=== PATIENT | male | born 1980 | race Caucasian/White ===

== ENCOUNTER 2018-10-11 19:55 | Inpatient (IN) | payer OTHER, BC ==
[~2018-10-11] VITALS: Ht 185.4 cm; Wt 97.5 kg
[2018-10-11] MEDS ORDERED: HYDCOR10 PO (20:04)
[2018-10-11] MEDS ORDERED: Hydrocortisone5 MG PO (21:53)
--- NOTE | 2018-10-11 23:42 | NUR ---
10/11/18 2342 Alessandro Moon PT RECIEVED ANCEF 2GRAMS IV BY DR TAPIA AT 2323.
--- NOTE | 2018-10-12 00:28 | NUR ---
PACU ICU: PT BROUGHT TO ICU 12 VIA NANCYRLINDSAY WITH MD VELASQUEZ RN AT BEDSIDE. PT EASIL AROUSED, BUT FALLS BACK ASLEEP QUICKLY. DENIES ANY PAIN. L ANKLE WITH EXTERNAL FIXATOR IN PLACE. CAP REFILL <3SEC IN L FOOT, PT ABLE TO FEEL WHEN I TOUCH HIS TOES. LS CLEAR T/ WITH BIOX 92% ON 5L BLOWBY. HEART SOUND S1 AND S2 AUSCULTATED MONITOR SOWING NSR WITH HR 74. 18G IV WITH LR TO SLOW GRAVITY.
[2018-10-12 06:02] LABS: BASOPHILS PERCENT AUTO 0 % (0-2); EOSINOPHILS PERCENT AUTO 0 % (0-6); Hematocrit 36.2 % (37.0-53.0); Hemoglobin 12.4 g/dL (13.5-17.5); IMMATURE GRAN ABSOLUTE AUTO 0.02 K/mm3 (0.00-0.10); IMMATURE GRAN PERCENT AUTO 0 % (0-1); LYMPHOCYTES ABSOLUTE AUTO 0.56 K/mm3 (0.84-5.20); LYMPHOCYTES PERCENT AUTO 7 % (21-46); MONOCYTES ABSOLUTE AUTO 0.24 K/mm3 (0.16-1.47); MONOCYTES PERCENT AUTO 3 % (4-13); Mean Corpuscular HGB 32.2 pg (26.0-34.0); Mean Corpuscular HGB Conc 34.3 g/dL (31.5-36.5); Mean Corpuscular Volume 94 fL (80-100); Mean Platelet Volume 9.7 fL (9.1-12.4); NEUTROPHILS ABSOLUTE AUTO 6.72 K/mm3 (1.96-9.15); NEUTROPHILS PERCENT AUTO 89 % (41-73); Platelet Count 208 K/mm3 (150-400); RDW Coefficient Variation 12.3 % (11.7-14.2); RDW Standard Deviation 42.5 fL (35.1-46.3); Red Blood Cell Count 3.85 M/mm3 (4.30-5.90); White Blood Cell Count 7.54 K/mm3 (4.00-11.30)
--- NOTE | 2018-10-12 07:21 | NUR ---
SHIFT SUMMARY PT ADMITTED LAST NIGHT TRAUMA AFTER 10-12 FOOT FALL RESULTING IN RIGHT TIB/FIB FX. HE DID HIT HIS HEAD ON THE POLE HE WAS THROWING THAT CAUSED THE FALL. EXTERNAL FIXATOR PLACED BY DR. MELENDREZ. MEDICATED FOR PAIN PER EMAR. PT HAD A REPEAT XRAY AND A CT THIS AM TO DETERMINE APPROPRIATE PLACEMENT. RLE ELEVATED ON 3 PILLOWS. SOME TRACE SWELLING TO TOES NOTED THIS AM. REPORT PASSED TO ONCOMING SHIFT.
[2018-10-12] MEDS ORDERED: Percocet 5-3251 EACH PO (11:14)
[2018-10-12] MEDS ORDERED: ASPI325 PO (11:14)
--- NOTE | 2018-10-12 13:40 | NUR ---
PIN SITE CARE DRESSINGS REMOVED FROM RIGHT LEG. PIN SITES CLEANSED WITH PEROXIDE/WATER.STERILE SPLIT 4X4 DRESSINGS APPLIED, WRAPPED WITH KERLIX AND WRAPPED WITH SENA WRAPS. INSTRUCTED PATIENT AND HIS IN WOUND CARE AND SIGNS AND SYMPTOMS OF INFECTION. DISCHARGE INSTRUCTIONS REVIEWED AND QUESTIONS ANSWERED. PATIENT FAMILY BROUGHT IN CRUTCHES. PATIENT DISCHARGED TO HOME AT 1255
== END 2018-10-12 13:02 | disposition home or self-care (01) | DRG 494 ==
LOC: ER 19:55 → SURS 21:33
PROVIDERS: ADMIT Orthopaedic Surgery
PROC: 0QHG05Z Insertion of External Fixation Device into Right Tibia, Open Approach (ICD-10-PCS; principal; 2018-10-11 20:30)
DX: S82.871A Displaced pilon fracture of right tibia, initial encounter for closed fracture (principal); X58.XXXA Exposure to other specified factors, initial encounter; Y93.89 Activity, other specified; Y92.69 Other specified industrial and construction area as the place of occurrence of the external cause; Y99.0 Civilian activity done for income or pay
CPT/HCPCS: 29505; 36415; 73600; 73610; 73620; 73700; 85025; 96361-59; 96374-59; 96375-59; 96376-59; 97116; 97162; 97530; 99284-25; C1713; J0330; J0690; J1100; J1170; J1885; J2250; J2405; J2765; J3010; J7030

== ENCOUNTER → 2024-03-03 | Outpatient (CLI) | payer BC ==
[~2024-03-03] MED LIST: ASPI325 PO; HYDCOR10 PO; Hydrocortisone5 MG PO; Percocet 5-3251 EACH PO
[2024-03-03 11:17] LABS: BASOPHILS ABSOLUTE AUTO 0.06 K/mm3 (0.00-0.23); BASOPHILS PERCENT AUTO 1 % (0-2); EOSINOPHILS ABSOLUTE AUTO 0.12 K/mm3 (0.00-0.68); EOSINOPHILS PERCENT AUTO 1 % (0-6); Hematocrit 48.3 % (37.0-53.0); Hemoglobin 17.5 g/dL (13.5-17.5); IMMATURE GRAN ABSOLUTE AUTO 0.04 K/mm3 (0.00-0.10); IMMATURE GRAN PERCENT AUTO 1 % (0-1); LYMPHOCYTES ABSOLUTE AUTO 1.77 K/mm3 (0.84-5.20); LYMPHOCYTES PERCENT AUTO 20 % (21-46); MONOCYTES ABSOLUTE AUTO 0.66 K/mm3 (0.16-1.47); MONOCYTES PERCENT AUTO 8 % (4-13); Mean Corpuscular HGB 32.6 pg (26.0-34.0); Mean Corpuscular HGB Conc 36.2 g/dL (31.5-36.5); Mean Corpuscular Volume 90 fL (80-100); Mean Platelet Volume 9.3 fL (9.1-12.4); NEUTROPHILS ABSOLUTE AUTO 6.05 K/mm3 (1.96-9.15); NEUTROPHILS PERCENT AUTO 70 % (41-73); Platelet Count 229 K/mm3 (150-400); RDW Coefficient Variation 12.6 % (11.7-14.2); RDW Standard Deviation 40.8 fL (35.1-46.3); Red Blood Cell Count 5.36 M/mm3 (4.30-5.90)
[2024-03-03 11:28] LABS: Albumin, Blood 3.8 g/dL (3.4-5.0); Albumin/Globulin Ratio 1.1 (0.8-1.8); Bilirubin, Total 0.9 mg/dL (0.1-1.0); Bun/Creatinine Ratio 10.7 (12.0-20.0); Calcium, Blood 9.1 mg/dL (8.5-10.1); Creatinine, Blood 1.12 mg/dL (0.60-1.20); Globulin, Blood 3.6 g/dL (2.2-4.0); Potassium, Blood 3.9 mmol/L (3.5-5.5); Total Protein, Blood 7.4 g/dL (6.4-8.2)
== END | disposition home or self-care (01) ==
LOC: LAB SHORT 11:12
PROVIDERS: Emergency Medicine
DX: R10.31 Right lower quadrant pain (principal)
CPT/HCPCS: 80053; 85025